=== PATIENT | male | born 1940 | race Caucasian/White ===

== ENCOUNTER 2018-07-04 13:26 | Inpatient (IN) | payer MEDICARE ==
[~2018-07-04] VITALS: Ht 180.3 cm; Wt 83.9 kg
[2018-07-04 16:37] LABS: HEMATOCRIT 38.4 % (42.0-54.0); HEMOGLOBIN 13.7 g/dL (13.5-17.5)
[2018-07-04 16:58] LABS: ALBUMIN 3.6 g/dL (3.4-5.0); ALKALINE PHOSPHATASE 73 U/L (46-116); ALT (SGPT) 36 U/L (10-68); BILIRUBIN - TOTAL 0.41 mg/dL (0.2-1.3); CALC OSMOLALITY 283 mosm/kg (275-300); CALCIUM 8.4 mg/dL (8.5-10.1); CARBON DIOXIDE 27.7 mmol/L (21.0-32.0); CHLORIDE - SERUM 102 mmol/L (98-107); CREATININE - SERUM 0.9 mg/dL (0.6-1.3); GLUCOSE 221 mg/dL (74-106); POTASSIUM - SERUM 3.9 mmol/L (3.5-5.1); PROTEIN - SERUM 6.9 g/dL (6.4-8.2); SODIUM 138 mmol/L (136-145); UREA NITROGEN 15 mg/dL (7-18); eGFR NON AFRICAN AMERICAN 87 mL/min (90-120)
[2018-07-04] MEDS ORDERED: ACCUPRIL20 MG PO (17:03)
[2018-07-04] MEDS ORDERED: ZOLOFT50 MG PO (17:04)
[2018-07-04] MEDS ORDERED: ZOCOR20 MG PO (17:04)
[2018-07-04 20:07] VITALS: BP 195/85; BMI 25.8
[2018-07-04 22:57] VITALS: BP 107/71
[2018-07-05 09:20] VITALS: BP 91/51
[2018-07-05 09:59] LABS: BASOPHILS 0.3 % (0-2); HEMATOCRIT 37.8 % (42.0-54.0); HEMOGLOBIN 13.5 g/dL (13.5-17.5); IMMATURE GRANULOCYTES 0.3 % (0-5); LYMPHOCYTES 16.1 % (15-50); MCHC 35.7 g/dL (31.0-37.0); MCV 89.6 fL (80.0-100.0); MEAN PLATELET VOLUME 11.1 fL (7.4-10.4); MONOCYTES 5.5 % (2-11); NEUTROPHILS 76.8 % (40-80); PLATELET COUNT 212 10x3/uL (130-400); RBC 4.22 10x6/uL (4.20-6.10); RDW 12.1 % (11.5-14.5); WBC 11.6 10x3/uL (4.8-10.8)
[2018-07-05 10:09] LABS: CALC OSMOLALITY 280 mosm/kg (275-300); CALCIUM 8.3 mg/dL (8.5-10.1); CARBON DIOXIDE 26.7 mmol/L (21.0-32.0); CHLORIDE - SERUM 104 mmol/L (98-107); CREATININE - SERUM 0.8 mg/dL (0.6-1.3); POTASSIUM - SERUM 3.7 mmol/L (3.5-5.1); SODIUM 139 mmol/L (136-145); UREA NITROGEN 13 mg/dL (7-18); eGFR NON AFRICAN AMERICAN > 90 mL/min (90-120)
[2018-07-05 10:11] LABS: GLUCOSE 144 mg/dL (74-106)
[2018-07-05 12:24] VITALS: Ht 180.3 cm; Wt 83.9 kg
[2018-07-05 16:59] VITALS: BP 150/67
[2018-07-05 20:00] VITALS: BP 149/68
[2018-07-06] VITALS: BP 143/72
[2018-07-06 04:00] VITALS: BP 119/62
[2018-07-06 05:47] LABS: CALC OSMOLALITY 276 mosm/kg (275-300); CALCIUM 8.4 mg/dL (8.5-10.1); CARBON DIOXIDE 23.9 mmol/L (21.0-32.0); CHLORIDE - SERUM 107 mmol/L (98-107); CREATININE - SERUM 0.9 mg/dL (0.6-1.3); POTASSIUM - SERUM 3.7 mmol/L (3.5-5.1); SODIUM 138 mmol/L (136-145); UREA NITROGEN 16 mg/dL (7-18); eGFR NON AFRICAN AMERICAN 87 mL/min (90-120)
[2018-07-06 05:50] LABS: GLUCOSE 96 mg/dL (74-106)
[2018-07-06 06:17] LABS: BASOPHILS 0.6 % (0-2); EOSINOPHILS 3.8 % (0-7); HEMATOCRIT 35.9 % (42.0-54.0); HEMOGLOBIN 12.7 g/dL (13.5-17.5); IMMATURE GRANULOCYTES 0.2 % (0-5); LYMPHOCYTES 30.2 % (15-50); MCH 32.1 pg (26.0-34.0); MCHC 35.4 g/dL (31.0-37.0); MCV 90.7 fL (80.0-100.0); MEAN PLATELET VOLUME 11.5 fL (7.4-10.4); MONOCYTES 11.5 % (2-11); NEUTROPHILS 53.7 % (40-80); PLATELET COUNT 216 10x3/uL (130-400); RBC 3.96 10x6/uL (4.20-6.10); RDW 12.2 % (11.5-14.5); WBC 9.4 10x3/uL (4.8-10.8)
[2018-07-06 08:02] VITALS: BP 137/54
[2018-07-06 10:58] LABS: HEMATOCRIT 39.1 % (42.0-54.0)
[2018-07-06 11:46] VITALS: BP 153/70
[2018-07-06 20:00] VITALS: BP 186/77
[2018-07-06 22:40] LABS: HEMATOCRIT 37.2 % (42.0-54.0)
[2018-07-07] VITALS: BP 161/60
[2018-07-07 04:00] VITALS: BP 128/53
[2018-07-07 06:02] LABS: BASOPHILS 0.7 % (0-2); EOSINOPHILS 2.8 % (0-7); HEMATOCRIT 35.1 % (42.0-54.0); HEMOGLOBIN 12.3 g/dL (13.5-17.5); IMMATURE GRANULOCYTES 0.2 % (0-5); LYMPHOCYTES 25.6 % (15-50); MCH 31.5 pg (26.0-34.0); MEAN PLATELET VOLUME 11.1 fL (7.4-10.4); MONOCYTES 13.9 % (2-11); NEUTROPHILS 56.8 % (40-80); PLATELET COUNT 216 10x3/uL (130-400); WBC 9.1 10x3/uL (4.8-10.8)
[2018-07-07 06:14] LABS: INR 1.18 (0.85-1.17); PROTIME 14.5 SECONDS (11.6-15.0)
[2018-07-07 06:15] LABS: APTT 30.7 SECONDS (22.8-39.4)
[2018-07-07 06:34] LABS: CALC OSMOLALITY 278 mosm/kg (275-300); CALCIUM 8.1 mg/dL (8.5-10.1); CARBON DIOXIDE 23.7 mmol/L (21.0-32.0); CHLORIDE - SERUM 107 mmol/L (98-107); CREATININE - SERUM 0.8 mg/dL (0.6-1.3); POTASSIUM - SERUM 3.4 mmol/L (3.5-5.1); SODIUM 140 mmol/L (136-145); UREA NITROGEN 13 mg/dL (7-18); eGFR NON AFRICAN AMERICAN > 90 mL/min (90-120)
[2018-07-07 06:44] LABS: GLUCOSE 102 mg/dL (74-106)
[2018-07-07 08:28] VITALS: BP 147/67
[2018-07-07 10:19] LABS: HEMATOCRIT 37.5 % (42.0-54.0); HEMOGLOBIN 13.6 g/dL (13.5-17.5)
[2018-07-07 15:31] VITALS: BP 161/60
[2018-07-07 19:58] VITALS: BP 165/73
[2018-07-08 04:00] VITALS: BP 139/43
[2018-07-08 06:27] LABS: BASOPHILS 0.5 % (0-2); EOSINOPHILS 4.5 % (0-7); HEMATOCRIT 32.5 % (42.0-54.0); HEMOGLOBIN 11.5 g/dL (13.5-17.5); IMMATURE GRANULOCYTES 0.2 % (0-5); LYMPHOCYTES 27.8 % (15-50); MCH 31.7 pg (26.0-34.0); MCHC 35.4 g/dL (31.0-37.0); MCV 89.5 fL (80.0-100.0); MEAN PLATELET VOLUME 10.8 fL (7.4-10.4); MONOCYTES 10.2 % (2-11); NEUTROPHILS 56.8 % (40-80); PLATELET COUNT 192 10x3/uL (130-400); RBC 3.63 10x6/uL (4.20-6.10); RDW 12.2 % (11.5-14.5); WBC 8.4 10x3/uL (4.8-10.8)
[2018-07-08 06:43] LABS: CALCIUM 7.8 mg/dL (8.5-10.1); CARBON DIOXIDE 22.9 mmol/L (21.0-32.0); CHLORIDE - SERUM 106 mmol/L (98-107); CREATININE - SERUM 0.8 mg/dL (0.6-1.3); POTASSIUM - SERUM 3.8 mmol/L (3.5-5.1); SODIUM 138 mmol/L (136-145); eGFR NON AFRICAN AMERICAN > 90 mL/min (90-120)
[2018-07-08 06:46] LABS: CALC OSMOLALITY 282 mosm/kg (275-300); GLUCOSE 242 mg/dL (74-106); UREA NITROGEN 9 mg/dL (7-18)
[2018-07-08 09:07] VITALS: BP 162/58
[2018-07-08] MEDS ORDERED: PROTONIX40 MG PO (11:56)
== END 2018-07-08 14:00 | disposition home or self-care (01) | DRG 378 ==
LOC: D.CT 13:26 → D.MS 15:11 → D.SDCHOLD 15:11 → D.MS 15:42
PROVIDERS: Internal Medicine Gastroenterology; Internal Medicine Nephrology
PROC: 0DB78ZX Excision of Stomach, Pylorus, Via Natural or Artificial Opening Endoscopic, Diagnostic (ICD-10-PCS; principal; 2018-07-07 12:24)
DX: K92.1 Melena (principal); K56.7 Ileus, unspecified; T39.395A Adverse effect of other nonsteroidal anti-inflammatory drugs [NSAID], initial encounter; K57.90 Diverticulosis of intestine, part unspecified, without perforation or abscess without bleeding; K44.9 Diaphragmatic hernia without obstruction or gangrene; E11.9 Type 2 diabetes mellitus without complications; Z79.4 Long term (current) use of insulin; I10 Essential (primary) hypertension; D64.9 Anemia, unspecified